=== PATIENT | female | born 1990 | race Caucasian/White ===

== ENCOUNTER 2020-11-04 14:59 | Emergency (ER) | payer BC ==
--- NOTE | 2020-11-04 17:18 | EDM.PDOC ---
ED HPI GENERAL MEDICAL PROBLEM - General Chief Complaint: ENT Problem Stated Complaint: EAR PAIN Time Seen by Provider: 11/04/20 16:30 Source of Information: Reports: Patient, RN, RN Notes Reviewed History Limitations: Reports: No Limitations - History of Present Illness INITIAL COMMENTS - FREE TEXT/NARRATIVE: María is a 30 y/o female who presents to the ED via personal vehicle with complaints of right ear pain and sensation of bolus caught in back of throat. The patient reports the sensation to her throat began approximately one week ago and has maintained in severity over that time; she states her ear pain began this morning and has maintained in that time. The patient denies cough, sinus congestion, ear drainage/pressure, sore throat, headache, vision changes, throat tightness, difficulty swallowing, shortness of breath, or chest pain. The patient denies heartburn or reflux. She has taken no medications for her symptoms. Right Ear Pain Score (Numeric/FACES): 6 - Related Data Allergies Allergy/AdvReac Type Severity Reaction Status Date / Time Penicillins Allergy Rash Verified 11/04/20 15:40 Sulfa (Sulfonamide Allergy Other Verified 11/04/20 15:40 Antibiotics) Home Meds: Home Meds Rivaroxaban [Xarelto] 20 mg PO DAILY 11/04/20 [History] buPROPion [Wellbutrin SR] 150 mg PO DAILY 11/04/20 [History] Social & Family History - Tobacco Use Tobacco Use Status *Q: Never Tobacco User Second Hand Smoke Exposure: No - Caffeine Use Caffeine Use: Reports: Coffee, Soda, Tea - Recreational Drug Use Recreational Drug Use: No ED ROS ENT - Review of Systems Review Of Systems: Comprehensive ROS is negative, except as noted in HPI. ED EXAM, ENT - Physical Exam Exam: See Below Exam Limited By: No Limitations General Appearance: Alert, No Apparent Distress, Obese Eye Exam: Bilateral Eye: EOMI, Normal Inspection, PERRL (2mm) Ears: Normal External Exam, Normal Canal, Hearing Grossly Normal, Normal TMs. No: Mastoid Swelling, Mastoid Tenderness, Canal Blood, Canal Discharge, TM Bulging, TM Dullness, TM Erythema, TM Fluid, TM Perforation, TM Obscured by Cerumen Nose: Normal Inspection, Normal Mucousa, No Blood Mouth/Throat: Normal Inspection, Normal Gums, Normal Lips, Normal Oropharynx, Normal Teeth. No: Hoarse Voice, Pharyngeal Erythema, Throat Swelling, Tongue Swelling, Tonsillar Erythema, Tonsillar Exudates, Tonsillar Swelling Head: Atraumatic, Normocephalic Neck: Normal Inspection, Supple, Non-Tender, Full Range of Motion. No: Lymphadenopathy (L), Lymphadenopathy (R) Respiratory/Chest: No Respiratory Distress, Lungs Clear, Normal Breath Sounds, No Accessory Muscle Use, Chest Non-Tender Cardiovascular: Normal Peripheral Pulses, Regular Rate, Rhythm, No Edema, No Gallop, No JVD, No Murmur, No Rub GI/Abdominal: Normal Bowel Sounds, Soft, Non-Tender, No Distention, No Abnormal Bruit, No Mass, Pelvis Stable (Female) Exam: Deferred Rectal (Female) Exam: Deferred Back: Normal Inspection, Full Range of Motion Extremities: Normal Inspection, Normal Range of Motion, Non-Tender, No Pedal Edema, Normal Capillary Refill Neurological: Alert, Oriented, CN II-XII Intact, Normal Cognition, Normal Gait, No Motor/Sensory Deficits Psychiatric: Normal Affect, Normal Mood Skin: Warm, Dry, Intact, Normal Color, No Rash. No: Cyanosis, Jaundice, Mottled, Pallor Course - Vital Signs Last Recorded V/S: Last Vital Signs Temp 96.6 F L 11/04/20 15:21 Pulse 91 11/04/20 15:21 Resp 18 11/04/20 15:21 BP 130/75 11/04/20 15:21 Pulse Ox 98 11/04/20 15:21 - Orders/Labs/Meds Meds: Medications Discontinued Medications Generic Name Dose Route Start Last Admin Trade Name Freq PRN Reason Stop Dose Admin Omeprazole 20 mg 11/04/20 17:30 11/04/20 17:33 Omeprazole 20 Mg Cap.Cr PO 11/04/20 17:31 20 mg ONETIME ONE Administration - Re-Assessments/Exams Free Text/Narrative Re-Assessment/Exam: 11/04/20 Findings of examination reviewed with patient. Will treat with course of omepra zole for GERD. Discussed supportive cares for GERD as well as red flag signs and symptoms which would warrant reevaluation. Patient instructed to follow up with primary care provider following course of omeprazole, or sooner should symptoms persist. Patient verbalized understanding and agreement with the plan of care. Departure - Departure Time of Disposition: 17:15 Disposition: Home, Self-Care 01 Condition: Good Clinical Impression: Acute pain of right ear Acid reflux Qualifiers: Esophagitis presence: with esophagitis Esophagitis bleeding: without hemorrhage Qualified Code(s): K21.00 - Gastro-esophageal reflux disease with esophagitis, without bleeding - Discharge Information *PRESCRIPTION DRUG MONITORING PROGRAM REVIEWED*: Not Applicable *COPY OF PRESCRIPTION DRUG MONITORING REPORT IN PATIENT JHOAN: Not Applicable Instructions: Food Choices for Gastroesophageal Reflux Disease, Adult, Gastroesophageal Reflux Disease, Adult Referrals: Fernanda Amador MD [Primary Care Provider] - Forms: ED Department Discharge Additional Instructions: Rx: omeprazole 1.) Follow up with primary care provider following course of omeprazole, or sooner should symptoms persist despite medication. 2.) You may take ibuprofen (Advil/Motrin) 400mg every six hours, as pain to right ear persists. You may also take acetaminophen (Tylenol) 650mg every six hours, as pain persists. You may stagger these medications so you are receiving a dose every three hours. 3.) Eat a bland diet, avoiding greasy, spicy, or high-fat foods. Sepsis Event Note (ED) - Evaluation Sepsis Screening Result: No Definite Risk
[2020-11-04] MEDS ORDERED: Omeprazole 20 MG Cap.CR PO ONE (17:30)
== END 2020-11-04 17:35 | disposition home or self-care (01) ==
LOC: DL.ED 14:59
DX: K21.00 Gastro-esophageal reflux disease with esophagitis, without bleeding (principal); H92.01 Otalgia, right ear; Z88.0 Allergy status to penicillin; Z88.2 Allergy status to sulfonamides; Z79.01 Long term (current) use of anticoagulants
CPT/HCPCS: 99283; A9270

== ENCOUNTER 2020-11-26 19:55 | Emergency (ER) | payer BC ==
[2020-11-26] MEDS ORDERED: Sodium Chloride 0.9% 10 ML Syringe FLUSH PRN (20:22)
[2020-11-26] MEDS ORDERED: GI Cocktail Oral Solution 30 ML PO ONE (20:29)
--- NOTE | 2020-11-26 20:29 | EDM.PDOC ---
ED HPI GENERAL MEDICAL PROBLEM - General Chief Complaint: Cardiovascular Problem Stated Complaint: CHEST AND BACK PAIN. Time Seen by Provider: 11/26/20 20:27 Source of Information: Reports: Patient History Limitations: Reports: No Limitations - History of Present Illness INITIAL COMMENTS - FREE TEXT/NARRATIVE: Patient is a unfortunate 30-year-old obese female who presents emerged part today with complaint of chest pain. Patient reports she has had intermittent episodes of achy type pain in her left anterior chest over the past week. 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 Denies: Blood Pressure Problem, Dyspnea on Exertion ED EXAM, GENERAL - Physical Exam Exam: See Below Exam Limited By: No Limitations General Appearance: Alert, WD/WN, Mild Distress Ears: Normal External Exam, Normal Canal, Hearing Grossly Normal, Normal TMs Nose: Normal Inspection, Normal Mucosa, No Blood Throat/Mouth: Normal Inspection, Normal Lips, Normal Teeth, Normal Gums, Normal Oropharynx, Normal Voice, No Airway Compromise Head: Atraumatic, Normocephalic Neck: Normal Inspection, Supple, Non-Tender, Full Range of Motion Respiratory/Chest: No Respiratory Distress, Lungs Clear, Normal Breath Sounds, No Accessory Muscle Use, Other (Tenderness to left anterior chest wall along the fourth intercostal space which completely reproduces symptoms) Cardiovascular: Normal Peripheral Pulses, Regular Rate, Rhythm, No Edema, No Gallop, No JVD, No Murmur, No Rub GI/Abdominal: Normal Bowel Sounds, Soft, Non-Tender, No Organomegaly, No Distention, No Abnormal Bruit, No Mass Back Exam: Normal Inspection, Full Range of Motion, NT Extremities: Normal Inspection, Normal Range of Motion, Non-Tender, Normal Capillary Refill, No Pedal Edema Neurological: Alert, Oriented Skin Exam: Warm, Dry, Intact #1 Interpretation EKG Date: 11/26/20 Time: 20:39 Rhythm: NSR [place]: Normal QRS: Normal ST-T: Normal QT: Normal EKG Interpretation Comments: No acute ischemic changes Course - Vital Signs Text/Narrative:: Work-up today is reassuring, no evidence of pulmonary embolus, patient will be discharged home encouraged to take Prilosec OTC and Tums for pain and return to the emergency department for any worsening condition Last Recorded V/S: Last Vital Signs Temp 98.1 F 11/26/20 20:15 Pulse 88 11/26/20 20:15 Resp 20 11/26/20 20:15 BP 124/56 L 11/26/20 20:15 Pulse Ox 98 11/26/20 20:15 - Orders/Labs/Meds Orders: Active Orders 24 hr Category Date Time Status Chest 2V [CR] Stat Exams 11/26/20 20:20 Stop Req UA W/MICROSCOPIC [URIN] Stat Lab 11/26/20 21:13 Results Sodium Chloride 0.9% [Saline Flush] Med 11/26/20 20:22 Active 10 ml FLUSH ASDIRECTED PRN Saline Lock Insert [OM.PC] Stat Oth 11/26/20 20:22 Ordered Medication Orders Sodium Chloride (Sodium Chloride 0.9% 10 Ml Syringe) 10 ml FLUSH ASDIRECTED PRN PRN Reason: Keep Vein Open Last Admin: 11/26/20 20:39 Dose: 10 ml Documented by: FABIOLA Labs: Laboratory Tests 11/26/20 11/26/20 11/26/20 Range/Units 20:35 20:35 21:13 WBC 10.9 H (5.0-10.0) 10^3/uL RBC 4.61 (4.2-5.4) 10^6/uL Hgb 13.5 (12.0-16.0) g/dL Hct 41.2 (37.0-47.0) % MCV 89.4 (80-100) fL MCH 29.3 (27.0-34.0) pg MCHC 32.8 L (33.0-35.0) g/dL Plt Count 296 (150-450) 10^3/uL Neut % (Auto) 55.6 (42.2-75.2) % Lymph % (Auto) 36.0 (20.5-50.1) % [place] % (Auto) 4.9 (2-8) % Eos % (Auto) 3.3 H (1.0-3.0) % Baso % (Auto) 0.2 (0.0-1.0) % Sodium 136 (136-145) mmol/L Potassium 3.9 (3.5-5.1) mmol/L Chloride 98 (98-107) mmol/L Carbon Dioxide 27 (21-32) mmol/L Anion Gap 14.9 H (7-13) mEq/L BUN 9 (7-18) mg/dL Creatinine 0.69 (0.55-1.02) mg/dL Est Cr Clr Drug Dosing 102.95 mL/min Estimated GFR (MDRD) > 60 BUN/Creatinine Ratio 13.0 (No establ ref range) Glucose 98 (70-99) mg/dL Calcium 8.9 (8.5-10.1) mg/dL Total Bilirubin 0.2 (0.2-1.0) mg/dL AST 15 (15-37) U/L ALT 34 (14-59) U/L Alkaline Phosphatase 59 (46-116) U/L Troponin I High Sens < 4 (<=51) pg/mL Total Protein 7.9 (6.4-8.2) g/dL Albumin 3.9 (3.4-5.0) g/dL Globulin 4.0 Albumin/Globulin Ratio 1.0 Lipase 115 (73-393) U/L HCG, Qual Negative Urine Color Yellow (YELLOW) Urine Appearance Slightly cloudy (CLEAR) Urine pH 6.0 (5.0-9.0) Ur Specific [place] >= 1.030 (1.005-1.030) Urine Protein Negative (NEGATIVE) Urine Glucose (UA) Negative (NEGATIVE) Urine Ketones Negative (NEGATIVE) Urine Occult Blood Small H (NEGATIVE) Urine Nitrite Negative (NEGATIVE) Urine Bilirubin Negative (NEGATIVE) Urine Urobilinogen 0.2 (0.2-1.0) mg/dL Ur Leukocyte Esterase Negative (NEGATIVE) Meds: Medications Generic Name Dose Route Start Last Admin Trade Name Wolfgang PRN Reason Stop Dose Admin Sodium Chloride 10 ml 11/26/20 20:22 11/26/20 20:39 Sodium Chloride 0.9% 10 Ml Syringe FLUSH 10 ml ASDIRECTED PRN Administration Keep Vein Open Discontinued Medications Generic Name Dose Route Start Last Admin Trade Name Wolfgang PRN Reason Stop Dose Admin Al Hydroxide/Mg Hydroxide 30 ml 11/26/20 20:29 11/26/20 20:39 Gi Cocktail Oral Solution 30 Ml PO 11/26/20 20:30 30 ml ONETIME ONE Administration Iopamidol 100 ml 11/26/20 20:38 11/26/20 20:44 Iopamidol 755 Mg/Ml 100 Ml Bottle IVPUSH 11/26/20 20:39 100 ml ONETIME ONE Administration Departure - Departure Time of Disposition: 21:32 Disposition: Home, Self-Care 01 Condition: Good Clinical Impression: GERD (gastroesophageal reflux disease) Qualifiers: Esophagitis presence: with esophagitis Esophagitis bleeding: without hemorrhage Qualified Code(s): K21.00 - Gastro-esophageal reflux disease with esophagitis, without bleeding Instructions: Gastroesophageal Reflux Disease, Adult, [id number] Forms: ED Department Discharge Additional Instructions: Home, rest, Prilosec OTC daily for 1 month, Tums as needed for pain, return as needed for any worsening condition Sepsis Event Note (ED) - Focused Exam Vital Signs: Vital Signs Temp Pulse Resp BP Pulse Ox 11/26/20 20:15 98.1 F 88 20 124/56 L 98 - My Orders Last 24 Hours: My Active Orders 11/26/20 20:20 Chest 2V [CR] Stat 11/26/20 20:22 Sodium Chloride 0.9% [Saline Flush] 10 ml FLUSH ASDIRECTED PRN Saline Lock Insert [OM.PC] Stat 11/26/20 21:13 UA W/MICROSCOPIC [URIN] Stat - Assessment/Plan Last 24 Hours: My Active Orders 11/26/20 20:20 Chest 2V [CR] Stat 11/26/20 20:22 Sodium Chloride 0.9% [Saline Flush] 10 ml FLUSH ASDIRECTED PRN Saline Lock Insert [OM.PC] Stat 11/26/20 21:13 UA W/MICROSCOPIC [URIN] Stat
[2020-11-26] MEDS ORDERED: Iopamidol 755 Mg/ML 100 ML Bottle IVPUSH ONE (20:38)
[2020-11-26 21:01] LABS: ANION GAP 14.9 mEq/L (7-13); CHLORIDE,CL 98 mmol/L (98-107); SODIUM,NA 136 mmol/L (136-145)
--- NOTE | 2020-11-26 21:28 | CT ---
PROCEDURE INFORMATION: Exam: CT Chest With Contrast; Diagnostic Exam date and time: 11/26/2020 9:03 PM Age: 30 years old Clinical indication: Other: HX of pe; Additional info: Chest pain TECHNIQUE: Imaging protocol: Diagnostic computed tomography of the chest with contrast. Radiation optimization: All CT scans at this facility use at least one of these dose optimization techniques: automated exposure control; mA and/or kV adjustment per patient size (includes targeted exams where dose is matched to clinical indication); or iterative reconstruction. Contrast material: [id number]; Contrast volume: 84 ml; Contrast route: INTRAVENOUS (IV); COMPARISON: No relevant prior studies available. FINDINGS: Lungs: Clear. Pleural spaces: Unremarkable. No pneumothorax. No pleural effusion. Heart: Normal in size and configuration. No pericardial effusion. Pulmonary arteries: Normal in course and caliber. Aorta: Normal in course and caliber. No acute pathology. Lymph nodes: No adenopathy. Bones/joints: No acute skeletal pathology. Soft tissues: Unremarkable. Other findings: The visualized intra-abdominal structures demonstrate no acute findings. IMPRESSION: Negative for acute thoracic pathology.
== END 2020-11-26 21:42 | disposition home or self-care (01) ==
LOC: DL.ED 19:55
DX: K21.00 Gastro-esophageal reflux disease with esophagitis, without bleeding (principal); E66.9 Obesity, unspecified; Z88.0 Allergy status to penicillin; Z88.2 Allergy status to sulfonamides; Z68.41 Body mass index [BMI] 40.0-44.9, adult
CPT/HCPCS: 36415; 71260; 80053; 81001; 83690; 84484; 84703; 85025; 93005; 99285; A9270; Q9967

== ENCOUNTER 2023-01-13 05:20 | Inpatient (IN) | payer BC ==
[2023-01-13] MEDS ORDERED: Citric Acid/Sodium Citrate Solution 30 ML Cup ONE (06:35)
[2023-01-13] MEDS ORDERED: Methylergonovine 0.2 MG Tab PO PRN (06:38)
[2023-01-13] MEDS ORDERED: Oxytocin 10 Units/1 ML SDV IM PRN (06:38)
[2023-01-13] MEDS ORDERED: Tranexamic Acid 1,000 MG in Sodium Chloride 0.9% 100 ML IV PRN (06:38)
[2023-01-13] MEDS ORDERED: Sodium Chloride 0.9% 10 ML Syringe FLUSH PRN (06:38)
[2023-01-13] MEDS ORDERED: ceFAZolin 2 GM Vial IVPUSH ONE (06:38)
[2023-01-13] MEDS ORDERED: Carboprost Tromethamine 250 MCG/1 ML Amp IM PRN (06:38)
[2023-01-13] MEDS ORDERED: Oxytocin/Normal Saline 30 UNIT/500 ML BAG IV SCH (06:45)
[2023-01-13] MEDS ORDERED: Lactated Ringers 1,000 ML IV SCH (06:45)
[2023-01-13] MEDS ORDERED: Phenylephrine 1% 10 MG/ML SDV ONE (06:55)
[2023-01-13] MEDS ORDERED: Oxytocin 10 Units/1 ML SDV ONE (06:55)
[2023-01-13] MEDS ORDERED: Water For Injection, Sterile 20 ML ONE (06:56)
[2023-01-13] MEDS ORDERED: Lidocaine 2% with EPINEPHrine 1:200,000 20 ML SDV ONE (07:31)
[2023-01-13] MEDS ORDERED: Bupivacaine 0.25% 10 ML SDV ONE (07:32)
[2023-01-13] MEDS ORDERED: Rocuronium 100 MG/10 ML MDV ONE (07:42)
[2023-01-13] MEDS ORDERED: Succinylcholine 200 MG/10 ML MDV ONE (07:42)
[2023-01-13] MEDS ORDERED: Oxytocin/Normal Saline 30 UNIT/500 ML BAG ONE (08:37)
[2023-01-13] MEDS ORDERED: fentaNYL Citrate/PF 1,500 MCG/30 ML PCA Vial ONE (08:57)
[2023-01-13] MEDS ORDERED: Naloxone 2 MG/2 ML Syringe IVPUSH PRN (09:02)
[2023-01-13] MEDS ORDERED: fentaNYL Citrate/PF 1,500 MCG/30 ML PCA Vial IV SCH (09:15)
[2023-01-13] MEDS: Lactated Ringers 1,000 ML IV SCH ×2 (12:05→19:40)
[2023-01-13] MEDS: Sodium Chloride 0.9% 10 ML Syringe FLUSH SCH ×2 (12:21→22:40)
[2023-01-13] MEDS: Ketorolac 30 MG/ML SDV IVPUSH SCH (15:57)
[2023-01-13] MEDS: Simethicone 80 MG Tab.Chew PO SCH (22:41)
[2023-01-14] MEDS: Ketorolac 30 MG/ML SDV IVPUSH SCH ×2 (00:04→07:37)
[2023-01-14] MEDS ORDERED: Misoprostol 400 MCG (4 X 100 MCG TAB) RECTAL PRN (00:41)
[2023-01-14] MEDS ORDERED: Acetaminophen 325 MG Tab PO PRN (00:41)
[2023-01-14] MEDS ORDERED: diphenhydrAMINE 50 MG/ML SDV IVPUSH PRN (00:41)
[2023-01-14] MEDS ORDERED: Methylergonovine 0.2 MG/1 ML Amp IM PRN (00:41)
[2023-01-14] MEDS ORDERED: Naloxone 2 MG/2 ML Syringe IVPUSH PRN (00:41)
[2023-01-14] MEDS ORDERED: ePHEDrine 50 MG/ML SDV IVPUSH PRN (00:41)
[2023-01-14] MEDS ORDERED: Ondansetron 4 MG/2 ML SDV IVPUSH PRN (00:41)
[2023-01-14] MEDS ORDERED: Lactated Ringers 1,000 ML IV SCH (00:45)
[2023-01-14] MEDS: Lactated Ringers 1,000 ML IV SCH (03:26)
[2023-01-14 06:47] LABS: BASOPHILS PERCENT AUTO 0.1 % (0.0-1.0); EOSINOPHILS PERCENT AUTO 0.7 % (1.0-3.0); HEMATOCRIT 29.2 % (37.0-47.0); HEMOGLOBIN 9.5 g/dL (12.0-16.0); LYMPHOCYTES PERCENT AUTO 15.1 % (20.5-50.1); MEAN CORPUSCULAR HEMOGLOBIN 31.4 pg (27.0-34.0); MEAN CORPUSCULAR HGB CONC 32.5 g/dL (33.0-35.0); MEAN CORPUSCULAR VOLUME 96.4 fL (80-100); NEUTROPHILS PERCENT AUTO 80.1 % (42.2-75.2); PLATELET COUNT,PLT 170 10^3/uL (150-450); RED BLOOD CELL COUNT 3.03 10^6/uL (4.2-5.4); WHITE BLOOD CELL COUNT,WBC 12.9 10^3/uL (5.0-10.0)
[2023-01-14] MEDS: Prenatal Multivitamin with Calcium/Folic Acid/Iron Tab PO SCH ×2 (07:37→11:06)
[2023-01-14] MEDS: Simethicone 80 MG Tab.Chew PO SCH ×4 (07:38→22:13)
[2023-01-14] MEDS: Acetaminophen/oxyCODONE 325-5 MG Tab PO PRN ×5 (09:30→22:12)
[2023-01-14] MEDS: Enoxaparin 40 MG/0.4 ML Syringe SUBCUT SCH ×2 (10:36→22:13)
[2023-01-14] MEDS: Sodium Chloride 0.9% 10 ML Syringe FLUSH SCH (11:06)
[2023-01-14] MEDS: Ibuprofen 800 MG Tab PO PRN (16:30)
[2023-01-14] MEDS: Docusate Sodium 100 MG Cap PO PRN (17:50)
[2023-01-15] MEDS: Acetaminophen/oxyCODONE 325-5 MG Tab PO PRN ×2 (01:39→05:30)
[2023-01-15] MEDS: Ibuprofen 800 MG Tab PO PRN ×2 (01:40→08:51)
[2023-01-15] MEDS ORDERED: Ferrous Sulfate 325 MG Tab PO SCH (08:00)
[2023-01-15] MEDS: Simethicone 80 MG Tab.Chew PO SCH (08:51)
[2023-01-15] MEDS: Docusate Sodium 100 MG Cap PO PRN (08:51)
[2023-01-15] MEDS: Prenatal Multivitamin with Calcium/Folic Acid/Iron Tab PO SCH (08:51)
[2023-01-15] MEDS: Enoxaparin 40 MG/0.4 ML Syringe SUBCUT SCH (08:52)
== END 2023-01-15 13:45 | disposition home or self-care (01) | DRG 540 ==
LOC: DL.OBCHECK 05:20 → DL.OB 06:51 → OBSVTOIN 07:49
PROVIDERS: ADMIT Family Medicine; ATTEND Family Medicine
PROC: 10D00Z1 Extraction of Products of Conception, Low, Open Approach (ICD-10-PCS; principal; 2023-01-13)
PROC: 3E0334Z Introduction of Serum, Toxoid and Vaccine into Peripheral Vein, Percutaneous Approach (ICD-10-PCS; 2023-01-13)
DX: O14.94 Unspecified pre-eclampsia, complicating childbirth (principal); Z37.0 Single live birth; O99.12 Other diseases of the blood and blood-forming organs and certain disorders involving the immune mechanism complicating childbirth; O99.214 Obesity complicating childbirth; D68.51 Activated protein C resistance; O99.02 Anemia complicating childbirth; O99.344 Other mental disorders complicating childbirth; F32.A Depression, unspecified; O34.211 Maternal care for low transverse scar from previous cesarean delivery; O26.893 Other specified pregnancy related conditions, third trimester; Z3A.37 37 weeks gestation of pregnancy; Z88.0 Allergy status to penicillin; Z88.2 Allergy status to sulfonamides; Z79.899 Other long term (current) drug therapy; Z79.01 Long term (current) use of anticoagulants; Z86.711 Personal history of pulmonary embolism; Z90.89 Acquired absence of other organs; Z98.890 Other specified postprocedural states; Z67.11 Type A blood, Rh negative
CPT/HCPCS: 01961; 36415; 85025; 85461; 86850; 86900; 86901; A9270-GY; J0330; J1650; J1885; J2590; J2790; J3010; J7120

== ENCOUNTER 2023-08-17 22:07 | Emergency (ER) | payer BC ==
[2023-08-18 01:02] LABS: APPEARANCE,URINE TURBID (CLEAR); BILIRUBIN,URINE NEGATIVE (NEGATIVE); COLOR,URINE YELLOW (YELLOW); GLUCOSE,URINE NEGATIVE (NEGATIVE); KETONES,URINE NEGATIVE (NEGATIVE); LEUKOCYTE ESTERASE,URINE NEGATIVE (NEGATIVE); NITRITE,URINE NEGATIVE (NEGATIVE); OCCULT BLOOD,URINE TRACE-INTACT (NEGATIVE); PH,URINE 5.5 (5.0-9.0); PROTEIN,URINE 30 (NEGATIVE); UROBILINOGEN,URINE 0.2 mg/dL (0.2-1.0)
[2023-08-18 01:14] LABS: AMORPHOUS SEDIMENT,URINE MANY /HPF (NOT SEEN); BACTERIA,URINE FEW /HPF (0-FEW/HPF); EPITHELIAL CELLS,URINE FEW /HPF (NOT SEEN); RBC,URINE 0-5 /HPF (0-5); WBC,URINE 0-5 /HPF (0-5/HPF)
[2023-08-18 01:15] LABS: MUCUS,URINE OCCASIONAL /LPF (NOT SEEN)
== END 2023-08-18 01:49 | disposition left against medical advice (07) ==
LOC: DL.ED 22:07
DX: Z53.21 Procedure and treatment not carried out due to patient leaving prior to being seen by health care provider (principal)
CPT/HCPCS: 81001; 81025

== ENCOUNTER 2023-09-07 13:25 | Emergency (ER) | payer BC ==
[2023-09-07] MEDS: Sodium Chloride 0.9% 10 ML Syringe FLUSH PRN (14:11)
[2023-09-07 14:27] LABS: BASOPHILS PERCENT AUTO 0.3 % (0.0-1.0); EOSINOPHILS PERCENT AUTO 4.8 % (1.0-3.0); HEMATOCRIT 39.4 % (37.0-47.0); HEMOGLOBIN 12.7 g/dL (12.0-16.0); MEAN CORPUSCULAR HEMOGLOBIN 28.6 pg (27.0-34.0); MEAN CORPUSCULAR HGB CONC 32.2 g/dL (33.0-35.0); MEAN CORPUSCULAR VOLUME 88.7 fL (80-100); MONOCYTES PERCENT AUTO 5.3 % (2-8); NEUTROPHILS PERCENT AUTO 52.6 % (42.2-75.2); PLATELET COUNT,PLT 290 10^3/uL (150-450); RED BLOOD CELL COUNT 4.44 10^6/uL (4.2-5.4); WHITE BLOOD CELL COUNT,WBC 7.7 10^3/uL (5.0-10.0)
[2023-09-07 14:51] LABS: A/G RATIO 0.9; ALANINE AMINOTRANSFERASE,ALT 27 U/L (14-59); ALBUMIN 3.7 g/dL (3.4-5.0); ALKALINE PHOSPHATASE 54 U/L (46-116); ANION GAP 13.1 mEq/L (7-13); ASPARTATE AMNIOTRANSFERASE,AST 9 U/L (15-37); BILIRUBIN TOTAL 0.3 mg/dL (0.2-1.0); BLOOD UREA NITROGEN,BUN 8 mg/dL (7-18); BUN/CREATININE RATIO 9.8 (No establ ref range); CALCIUM 8.8 mg/dL (8.5-10.1); CARBON DIOXIDE,CO2 26 mmol/L (21-32); CHLORIDE,CL 104 mmol/L (98-107); CREATININE 0.82 mg/dL (0.55-1.02); GLUCOSE RANDOM 86 mg/dL (70-99); HCG QUALITATIVE,SERUM NEGATIVE (NEGATIVE); MAGNESIUM 1.7 mg/dL (1.8-2.4); POTASSIUM,K 4.1 mmol/L (3.5-5.1); PROTEIN TOTAL,TP 7.6 g/dL (6.4-8.2); SODIUM,NA 139 mmol/L (136-145)
[2023-09-07 14:55] LABS: INR 1.4 (0.9-1.2); PROTHROMBIN TIME 13.9 SEC (9.0-12.0); PTT,PARTIAL THROMBOPLSTIN TIME 37.2 SEC (22.0-34.0)
[2023-09-07 15:01] LABS: ESTIMATED GFR 97 mL/min (>=60)
[2023-09-07] MEDS: predniSONE 20 MG Tab PO ONE (15:31)
[2023-09-07] MEDS: Take Home: hydrOXYzine HCl 25 MG Tab, 4 Tab Pack PO ONE (15:49)
== END 2023-09-07 15:52 | disposition home or self-care (01) ==
LOC: DL.ED 13:25
DX: R07.89 Other chest pain (principal); F41.9 Anxiety disorder, unspecified; Z79.899 Other long term (current) drug therapy; Z88.0 Allergy status to penicillin; Z88.2 Allergy status to sulfonamides; Z79.01 Long term (current) use of anticoagulants
CPT/HCPCS: 36415; 71045; 80053; 83735; 84484; 84703; 85025; 85379; 85610; 85730; 93005; 99285; A9270; J7512; 93010; 99284; J3490

== ENCOUNTER 2024-01-07 19:23 | Emergency (ER) | payer BC ==
[2024-01-07] MEDS ORDERED: Sodium Chloride 0.9% 10 ML Syringe FLUSH PRN (19:49)
[2024-01-07] MEDS: Iopamidol 612 MG/ML 100 ML Bottle IVPUSH ONE (19:50)
[2024-01-07] MEDS: Acetaminophen 500 MG Tab PO ONE (20:40)
== END 2024-01-07 20:58 | disposition home or self-care (01) ==
LOC: DL.ED 19:23
DX: R10.12 Left upper quadrant pain (principal); Z79.899 Other long term (current) drug therapy; Z88.0 Allergy status to penicillin; Z88.2 Allergy status to sulfonamides
CPT/HCPCS: 74177; 99284; A9270; Q9967

== ENCOUNTER 2024-04-30 13:50 | Emergency (ER) | payer SELFPAY | END 2024-04-30 14:21 | disposition left against medical advice (07) | LOC: DL.ED 13:50 | DX: Z53.21 Procedure and treatment not carried out due to patient leaving prior to being seen by health care provider (principal) ==

== ENCOUNTER 2025-02-23 20:44 | Emergency (ER) | payer BC, OTHER ==
[2025-02-23] MEDS ORDERED: Sodium Chloride 0.9% 10 ML Syringe FLUSH PRN (21:03)
[2025-02-23] MEDS: GI Cocktail Oral Solution 30 ML PO ONE (21:19)
[2025-02-23 21:23] LABS: BASOPHILS PERCENT AUTO 0.4 % (0.0-1.0); EOSINOPHILS PERCENT AUTO 2.5 % (1.0-3.0); LYMPHOCYTES PERCENT AUTO 34.5 % (20.5-50.1); MONOCYTES PERCENT AUTO 5.2 % (2-8); NEUTROPHILS PERCENT AUTO 57.4 % (42.2-75.2); PLATELET COUNT,PLT 250 10^3/uL (150-450); RED BLOOD CELL COUNT 3.92 10^6/uL (4.2-5.4); WHITE BLOOD CELL COUNT,WBC 10.0 10^3/uL (5.0-10.0)
[2025-02-23 21:50] LABS: A/G RATIO 1.0; ALANINE AMINOTRANSFERASE,ALT 17.0 U/L (14-59); ASPARTATE AMNIOTRANSFERASE,AST 14.0 U/L (15-37); BILIRUBIN TOTAL 0.3 mg/dL (0.2-1.0); BLOOD UREA NITROGEN,BUN 14.0 mg/dL (7-18); CARBON DIOXIDE,CO2 30.0 mmol/L (21-32); CHLORIDE,CL 101.0 mmol/L (98-107); CREATININE 0.74 mg/dL (0.55-1.02); EST CRCL DRUG DOSING (CG) 92.5 mL/min; GLUCOSE RANDOM 96.0 mg/dL (70-99); POTASSIUM,K 4.0 mmol/L (3.5-5.1); PROTEIN TOTAL,TP 7.7 g/dL (6.4-8.2); SODIUM,NA 138.0 mmol/L (136-145); TSH ULTRASENSITIVE 2.29 uIU/mL (0.36-3.74)
[2025-02-23 21:52] LABS: ESTIMATED GFR 109.0 mL/min (>=60)
[2025-02-23 22:29] LABS: INR 1.0 (0.9-1.2); PTT,PARTIAL THROMBOPLSTIN TIME 28.8 SEC (22.0-34.0)
== END 2025-02-23 22:52 | disposition home or self-care (01) ==
LOC: DL.ED 20:44
DX: K21.00 Gastro-esophageal reflux disease with esophagitis, without bleeding (principal); Z90.89 Acquired absence of other organs; Z88.0 Allergy status to penicillin; Z88.2 Allergy status to sulfonamides; Z79.899 Other long term (current) drug therapy; Z79.01 Long term (current) use of anticoagulants
CPT/HCPCS: 36415; 71045; 80053; 84443; 84484; 85025; 85610; 85730; 93005; 96374; 99285; A9270; J2470